=== PATIENT | male | born 1990 | race Two or more races ===

== ENCOUNTER 2020-11-28 07:15 | Emergency (ER) | payer MEDICAID ==
[~2020-11-28] VITALS: Ht 165.1 cm; Wt 81.6 kg
--- NOTE | 2020-11-28 08:05 | NUR ---
PT IS IN ROOM #3. DR ORANTES EVALUATED THE PT.
[2020-11-28 08:30] LABS: HEMATOCRIT 43.3 % (36.7-47.1); MEAN CORPUSCULAR HEMOGLOBIN 27.6 uug (23.8-33.4); MEAN CORPUSCULAR VOLUME 84.6 fL (73.0-96.2); PLATELET COUNT (AUTO) 213 K/uL (152-348)
[2020-11-28 08:42] LABS: CREATININE 0.9 mg/dL (0.6-1.3); POTASSIUM 4.1 mmol/L (3.5-5.1)
[2020-11-28 08:47] LABS: BILIRUBIN,DIRECT 0.1 mg/dL (0.0-0.2); BILIRUBIN,TOTAL 0.2 mg/dL (0.2-1.0); TOTAL PROTEIN, SERUM 6.9 g/dL (6.4-8.2)
[2020-11-28] MEDS ORDERED: HYDR-3980 PO (08:56)
[2020-11-28 10:27] VITALS: BP 134/77
--- NOTE | 2020-11-28 10:27 | NUR ---
PT WAS D/C'd TO HOME. D/C INSTRUCTIONS GIVEN TO THE PT BY DR ORANTES.
== END 2020-11-28 10:30 | disposition home or self-care (01) ==
LOC: ER 07:15
DX: R07.89 Other chest pain (principal); R00.1 Bradycardia, unspecified; F17.200 Nicotine dependence, unspecified, uncomplicated
CPT/HCPCS: 36415; 71045; 83690; 85025; 93005; A4663

== ENCOUNTER 2021-07-04 09:49 | Emergency (ER) | payer MEDICAID ==
[~2021-07-04] VITALS: Ht 170.2 cm; Wt 81.6 kg
[~2021-07-04 09:49] MED LIST: HYDR-3980 PO
[2021-07-04] MEDS: LORAZEPAM 2 MG/1 ML VIAL IV ONE (10:33)
[2021-07-04] MEDS: ASPIRIN 325 MG TABLET PO ONE (10:33)
[2021-07-04] MEDS ORDERED: LORAZEPAM 2 MG/1 ML VIAL ONE (10:34)
--- NOTE | 2021-07-04 10:34 | NUR ---
PT WAS EVALUATED BY DR MCRAE. PT BECOME AGITATED AND DECIDED TO LEAVE. DR MCRAE TALKED TO THE PT. BUT PT INSISTED HE WANTS TO LEAVE ER. PT ELOPED.
[2021-07-04 10:38] LABS: HEMATOCRIT 45.2 % (36.7-47.1); MEAN CORPUSCULAR HEMOGLOBIN 27.6 uug (23.8-33.4); MEAN CORPUSCULAR VOLUME 83.4 fL (73.0-96.2); PLATELET COUNT (AUTO) 140 K/uL (152-348)
[2021-07-04 10:48] LABS: ETHANOL < 3 MG/DL (0-0)
[2021-07-04 10:49] LABS: ALANINE AMINOTRANSFERASE 30 U/L (16-63); ALKALINE PHOSPHATASE 105 U/L (50-136); ASPARTATE AMINOTRANSFERASE 22 U/L (15-37); BILIRUBIN,DIRECT 0.2 mg/dL (0.0-0.2); BILIRUBIN,TOTAL 0.6 mg/dL (0.2-1.0); CARBON DIOXIDE 26 mmol/L (21-32); CHLORIDE 100 mmol/L (98-107); CREATININE 1.1 mg/dL (0.6-1.3); GLUCOSE 99 mg/dL (74-106); POTASSIUM 3.8 mmol/L (3.5-5.1); TOTAL PROTEIN, SERUM 8.4 g/dL (6.4-8.2); UREA NITROGEN, BLOOD 8 mg/dL (7-18)
== END 2021-07-04 10:40 | disposition left against medical advice (07) ==
LOC: ER 09:49
DX: F41.9 Anxiety disorder, unspecified (principal); R07.9 Chest pain, unspecified; F14.10 Cocaine abuse, uncomplicated; F15.10 Other stimulant abuse, uncomplicated; Z79.899 Other long term (current) drug therapy
CPT/HCPCS: 36415; 80048; 80076; 80320; 85025; 93005; 99284; J2060; A4663; G0480; J7030